=== PATIENT | female | born 1975 | race Caucasian/White ===

== ENCOUNTER 2019-12-20 10:31 | Inpatient (IN) | payer MEDICAID ==
[~2019-12-20] VITALS: Ht 162.6 cm; Wt 95.9 kg
[2019-12-20 17:53] VITALS: BP 105/64
[2019-12-20 17:54] VITALS: BP 105/64
[2019-12-20] MEDS: ALBUTEROL SULFATE HFA 90 MCG/PUFF 8 GM INHALER IH PRN (22:15)
[2019-12-21 00:40] VITALS: BP 108/61
[2019-12-21] MEDS ORDERED: PNEUMOCOCCAL VACCINE POLYVALENT 0.5 ML VIAL [PPSV23] IM ONE (04:45)
[2019-12-21] MEDS ORDERED: NICOTINE 14 MG/24 HOUR PATCH TD PRN (07:30)
[2019-12-21] MEDS ORDERED: ALBUTEROL SULFATE HFA 90 MCG/PUFF 8 GM INHALER IH PRN (07:30)
[2019-12-21] MEDS ORDERED: CloNIDine HCL 0.1 MG TABLET PO PRN (07:30)
[2019-12-21] MEDS ORDERED: PETROLATUM,WHITE 28 GM JELLY TP PRN (07:30)
[2019-12-21] MEDS ORDERED: ACETAMINOPHEN 325 MG TABLET PO PRN (07:30)
[2019-12-21] MEDS ORDERED: GuaiFENesin/D-METHORPHAN [SUGAR-FREE] 200-20MG/10 ML SYRUP UDCUP PO PRN (07:30)
[2019-12-21] MEDS ORDERED: MAGNESIUM HYDROXIDE SUSPENSION 30 ML UDCUP PO PRN (07:30)
[2019-12-21] MEDS ORDERED: ONDANSETRON HCL 4 MG TABLET PO PRN (07:30)
[2019-12-21] MEDS ORDERED: LOPERAMIDE HCL 2 MG CAPSULE PO PRN (07:30)
[2019-12-21] MEDS ORDERED: MAG HYDROX/AL HYDROX/SIMETH ES 30 ML SUSPENSION UDCUP PO PRN (07:30)
[2019-12-21] MEDS ORDERED: IBUPROFEN 400 MG TABLET PO PRN (07:30)
[2019-12-21] MEDS ORDERED: DOCUSATE SODIUM 100 MG CAPSULE PO PRN (07:30)
[2019-12-21] MEDS: ALBUTEROL SULFATE HFA 90 MCG/PUFF 8 GM INHALER IH PRN ×2 (08:05→14:28)
[2019-12-21 08:10] VITALS: BP 107/60
[2019-12-21] MEDS: SUMAtriptan SUCCINATE 25 MG TABLET PO PRN (16:05)
[2019-12-21] MEDS: ZOLPIDEM TARTRATE 10 MG TABLET PO PRN (20:45)
[2019-12-22] VITALS: BP 115/63
[2019-12-22] MEDS: ALBUTEROL SULFATE HFA 90 MCG/PUFF 8 GM INHALER IH PRN ×2 (06:48→18:19)
[2019-12-22 07:53] LABS: BASOPHILS % (AUTO) 0.8 % (0.0-2.0); HEMATOCRIT 37.5 % (36-46); HEMOGLOBIN 12.5 g/dL (12.0-16.0); LYMPHOCYTES # (AUTO) 1.7 K/uL (1.0-4.8); MEAN CORPUSCULAR HEMOGLOBIN 30.2 pg (26.0-34.0); MEAN CORPUSCULAR HGB CONC 33.3 G/dL (31.0-37.0); MEAN CORPUSCULAR VOLUME 91 fL (80-100); MONOCYTES # (AUTO) 0.5 K/uL (0.1-1.0); MONOCYTES % (AUTO) 9.2 % (2.0-9.0); NEUTROPHILS # (AUTO) 2.4 K/uL (1.8-7.7); PLATELET COUNT (AUTO) 266 K/uL (150-450); RED BLOOD CELL COUNT(AUTO) 4.14 MIL/uL (4.00-5.20); RED CELL DISTRIBUTION WIDTH 13.4 % (11.5-14.5)
[2019-12-22 08:08] VITALS: BP 115/83
[2019-12-22 08:20] LABS: ALANINE AMINOTRANSFERASE 24 U/L (12-78); ALBUMIN 3.3 g/dL (3.4-5.0); ALKALINE PHOSPHATASE 78 U/L (46-116); ANION GAP 4 mmol/L (8-16); ASPARTATE AMINOTRANSFERASE 16 U/L (15-37); BILIRUBIN,TOTAL 0.3 mg/dL (0.1-1.0); CARBON DIOXIDE 28 mmol/L (22-29); CHLORIDE 104 mmol/L (98-107); CHOL/HDL RATIO 3.4 (3.9-5.7); CHOLESTEROL 205 mg/dL (131-200); CREATININE 0.78 mg/dL (0.60-1.30); FREE T4 (FREE THYROXINE) 0.75 ng/dL (0.76-1.46); GLOMERULAR FILTR. RATE CALC > 60 mL/min (>60); GLUCOSE,RANDOM 90 mg/dL (70-110); HCG,QUANTITATIVE < 1 mIU/mL (0-6); HDL CHOLESTEROL 61 mg/dL (40-60); LDL CHOL (CALC.) 127 mg/dL (0-130); POTASSIUM 4.1 mmol/L (3.5-5.1); SODIUM SERUM 136 mmol/L (136-145); THYROID STIMULATING HORMONE 1.72 uIU/mL (0.36-3.74); TOTAL PROTEIN, SERUM 6.9 g/dL (6.4-8.2); TRIGLYCERIDES 84 mg/dL (15-150); UREA NITROGEN, BLOOD 13 mg/dL (7-18)
[2019-12-22] MEDS: SERTRALINE HCL 50 MG TABLET PO SCH (08:56)
[2019-12-22] MEDS: HydrOXYzine PAMOATE 50 MG CAPSULE PO PRN (12:58)
[2019-12-22] MEDS: SUMAtriptan SUCCINATE 25 MG TABLET PO PRN (12:59)
[2019-12-22 16:37] VITALS: BP 108/59
[2019-12-22] MEDS: ZOLPIDEM TARTRATE 10 MG TABLET PO PRN (21:05)
[2019-12-23 05:59] VITALS: BP 106/62
[2019-12-23 08:26] VITALS: BP 90/69
[2019-12-23] MEDS: SERTRALINE HCL 50 MG TABLET PO SCH (08:58)
[2019-12-23 09:39] VITALS: BP 105/78
[2019-12-23] MEDS: HydrOXYzine PAMOATE 50 MG CAPSULE PO PRN (11:05)
[2019-12-23] MEDS ORDERED: SERT50TA12 PO (12:08)
== END 2019-12-23 13:10 | disposition home or self-care (01) | DRG 885 ==
LOC: B2S 13:04
DX: F33.2 Major depressive disorder, recurrent severe without psychotic features (principal); R45.851 Suicidal ideations; K21.9 Gastro-esophageal reflux disease without esophagitis; J44.9 Chronic obstructive pulmonary disease, unspecified; F43.10 Post-traumatic stress disorder, unspecified; F10.10 Alcohol abuse, uncomplicated; F14.10 Cocaine abuse, uncomplicated; F60.3 Borderline personality disorder; Z81.8 Family history of other mental and behavioral disorders; Z91.5 Personal history of self-harm; Z88.2 Allergy status to sulfonamides; Z88.8 Allergy status to other drugs, medicaments and biological substances; Z91.040 Latex allergy status; Z91.013 Allergy to seafood
CPT/HCPCS: 84439; 84443; J3535